=== PATIENT | male | born 1960 | race Caucasian/White ===

== ENCOUNTER → 2023-11-01 13:10 | Outpatient (REF) | payer BC, SELFPAY | LOC: RCS 13:10 | PROVIDERS: ATTENDING PHYSICIAN Nurse Practitioner Family | DX: R42 Dizziness and giddiness (principal) | CPT/HCPCS: 93225; 93226 ==

== ENCOUNTER → 2023-11-03 12:46 | Outpatient (REF) | payer BC, SELFPAY | LOC: RCS 12:46 | PROVIDERS: ATTENDING PHYSICIAN Nurse Practitioner Family | DX: R42 Dizziness and giddiness (principal) | CPT/HCPCS: 93306 ==

== ENCOUNTER 2024-07-09 09:28 | Emergency (ER) | payer BC, SELFPAY ==
[2024-07-09 09:30] VITALS: BP 157/101
[2024-07-09] MEDS: NEURONTIN 300 MG PO (10:52)
[2024-07-09] MEDS: TORADOL 30 MG IM (10:52)
[2024-07-09] MEDS: ROXICODONE 5 MG PO (11:27)
[2024-07-09 12:06] VITALS: BP 151/76
--- NOTE | 2024-07-09 12:12 | ED.GENMED ---
History of Present Illness
General
Chief Complaint: Back Pain
Time Seen by Provider: 07/09/24 10:11
History of Present Illness
History of Present Illness:
64-year-old male with history of Parkinson's, hypertension, and diabetes presents the emergency department for evaluation of right-sided low back pain radiating to the right thigh for the past 2 days. It makes it difficult for him to walk. Denies
any trauma or falls. No lower extremity paresthesias or loss of urinary continence.
Past History
Past History
ED Past Medical History: HTN, Hypercholesterolemia, NIDDM and Other (Parkinson's)
ED Past Surgical History: None
Social History
Tobacco: Smoker (Cigars)
Alcohol: Occasional
Drug: None
Personal:
Living: with family
Employment: Employed
Review of Systems
Review of Systems
Allergies reviewed?: Yes
All Other Systems: ROS reviewed and negative except as documented in HPI and ROS
Phy Exam
Physical Exam
Physical Exam:
GEN: Well appearing, NAD, WDWN
HEENT: Oral mucosa moist, no scleral icterus
Cardiac: Regular rate
Lung: No respiratory distress, no tachypnea
MSK: No gross deformity or injuries. No midline lumbar spine tenderness. No paraspinous muscle tenderness. Negative straight leg raise bilaterally
Skin: Good color, no pallor or jaundice, no rashes
Neuro: AO x3, moves all extremities freely, 2+ patellar reflexes bilaterally, no sensation lower extremities
Psych: Calm, cooperative
Course
Orders/Labs/Results
Orders:
Orders
07/09/24 10:44
Gabapentin [Neurontin] 300 mg PO NOW STA
Ketorolac [Toradol] 30 mg IM NOW STA
07/09/24 11:23
Oxycodone [Roxicodone] 5 mg PO NOW STA
Vital Signs
Initial and Last Documented VS:
Initial Vital Signs
Temp Pulse Resp BP Pulse Ox
98.2 F 87 20 157/101 100
07/09/24 09:30 07/09/24 09:30 07/09/24 09:30 07/09/24 09:30 07/09/24 09:30
Last Documented Vital Signs
Temp Pulse Resp BP Pulse Ox
98.2 F 74 18 151/76 97
07/09/24 09:30 07/09/24 12:06 07/09/24 12:06 07/09/24 12:06 07/09/24 12:06
MDM/Problems Addressed
MDM/Problems Addressed:
Neurologic exam reassuring. Likely lumbar radiculopathy/sciatic impingement. Discussed supportive care, will avoid muscle relaxants given propensity for falls in the setting of Parkinson's particularly avoiding tizanidine due to likelihood for
provoking orthostatic hypotension. Will treat with NSAIDs and gabapentin, recommend outpatient PCP follow-up
*Critical Care Note
Total Time (30-74mins, 75-104mins- exclusive of procedures): Not Applicable
ED Attending Note
-
Portions of this chart may have been created with voice recognition software.� Occasional wrong word or��sound alike� substitutions may have occurred due to the inherent limitations of voice recognition software.
Discharge Plan
Departure
Patient Disposition: Home (Routine Discharge)
Date of Disposition: 07/09/24
Time of Disposition: 12:12
Patient with high blood pressure during this ER visit?: No
Discharge Problem:
Acute lumbar radiculopathy
Instructions: Radiculopathy (DC)
Prescriptions:
New
celecoxib [Celebrex] 200 mg capsule
200 mg PO BID Qty: 20 0RF
gabapentin 300 mg capsule
300 mg PO TID Qty: 30 0RF
oxycodone 5 mg tablet
5 mg PO Q8H PRN (Reason: Pain) Qty: 10 0RF
No Action
aspirin 81 MG tablet,delayed release (DR/EC)
81 mg PO DAILY@1700
carbidopa-levodopa 1 TABLET tablet
3 tab PO BID
metformin 500 MG tablet extended release 24 hr
2,000 mg PO DAILY@1700
rosuvastatin 5 MG tablet
5 mg PO DAILY@1700
rasagiline [Azilect] 1 MG tablet
1 mg PO DAILY
empagliflozin [Jardiance] 25 MG tablet
25 mg PO DAILY
tamsulosin 0.4 MG capsule
0.4 mg PO DAILY Qty: 90 3RF
finasteride 5 MG tablet
5 mg PO DAILY Qty: 90 3RF
cefdinir [Omnicef] 300 MG capsule
300 mg PO BID Qty: 42 0RF
lisinopril 2.5 MG tablet
2.5 mg PO DAILY Qty: 0 0RF
Rx Instructions:
If your Blood pressure is over 130 mm hg restart
cephalexin 500 mg capsule
500 mg PO TID 7 Days Qty: 21 0RF
Referrals:
Shady Gerber CRNP [Family Provider] -
Interventions
Interventions:
*Risk Screen - Suicide Last Done: 07/09/24 09:31
*General Assessment Last Done: 07/09/24 09:30
*Neglect/Abuse Screening Last Done: 07/09/24 12:28
*ED- Fall Risk Assessment Last Done: 07/09/24 12:28
*ED COVID-19 Vaccine History Last Done: 07/09/24 12:28
*Nursing Disposition Last Done: 07/09/24 12:28
ED-Musculoskeletal Assessment Last Done: 07/09/24 10:38
Discharge Date and Time
Discharge Date/Time: 07/09/24 12:29
Print Language: KENYAN
== END 2024-07-09 12:29 | disposition home or self-care (01) ==
LOC: EMR 09:28
PROVIDERS: EMERGENCY PHYSICIAN Emergency Medicine; FAMILY PHYSICIAN Nurse Practitioner Family
DX: M54.16 Radiculopathy, lumbar region (principal); G20.A1 Parkinson's disease without dyskinesia, without mention of fluctuations; I10 Essential (primary) hypertension; E11.9 Type 2 diabetes mellitus without complications; E78.00 Pure hypercholesterolemia, unspecified; F17.290 Nicotine dependence, other tobacco product, uncomplicated
CPT/HCPCS: 99282; 96372

== ENCOUNTER → 2024-08-28 06:27 | Outpatient (REF) | payer BC, SELFPAY | LOC: RAD 06:27 | PROVIDERS: ATTENDING PHYSICIAN Nurse Practitioner Family | DX: R42 Dizziness and giddiness (principal) | CPT/HCPCS: 93880 ==